=== PATIENT | male | born 1965 | race Caucasian/White ===

== ENCOUNTER 2019-02-12 10:50 | Emergency (ER) | payer OTHER ==
[2019-02-12] MEDS ORDERED: FENTANYL CITRATE PF 50 MCG/1 ML 2ML VIAL ONE (11:43)
[2019-02-12 12:27] LABS: BASOPHILS % (AUTO) 0.4 % (0.0-5.0); EOSINOPHILS % (AUTO) 2.7 % (0.0-8.0); LYMPHOCYTES % (AUTO) 22.6 % (21.0-51.0); MEAN CORPUSCULAR HEMOGLOBIN 29.4 pg (27.0-33.0); MEAN CORPUSCULAR HGB CONC 34.3 g/dL (32.0-36.0); MEAN CORPUSCULAR VOLUME 85.8 fL (79-99); MONOCYTES % (AUTO) 5.9 % (3.0-13.0); NEUTROPHILS % (AUTO) 68.4 % (40.0-77.0); PLATELET COUNT (AUTO) 218 K/uL (130-400); RED BLOOD CELL COUNT(AUTO) 3.26 MIL/uL (4.50-6.20); RED CELL DISTRIBUTION WIDTH 16.8 % (11.0-15.5)
[2019-02-12 12:37] LABS: INR 0.98 (0.85-1.15); PARTIAL THROMBOPLASTIN TIME 24.7 SEC (26.3-35.5); PROTHROMBIN TIME 10.3 SEC (9.6-11.6)
[2019-02-12 12:47] LABS: CREATININE 1.6 mg/dL (0.5-1.5)
[2019-02-12 12:51] LABS: ALBUMIN 2.2 g/dL (3.5-5.0); BILIRUBIN,DIRECT 0.3 mg/dL (0.0-0.3); BILIRUBIN,TOTAL 0.6 mg/dL (0.2-1.0); MAGNESIUM 2.5 mg/dL (1.80-2.40); TOTAL PROTEIN, SERUM 5.3 g/dL (6.0-8.3)
[2019-02-12 13:35] LABS: BILIRUBIN,URINE SMALL (NEGATIVE); COLOR,URINE YELLOW (YELLOW); GLUCOSE, URINE (UA) 500 mg/dL (NEGATIVE); KETONES,URINE 15 mg/dL (NEGATIVE); LEUKOCYTE ESTERASE ,URINE NEGATIVE (NEGATIVE); NITRATE,URINE NEGATIVE (NEGATIVE); OCCULT BLOOD,URINE MODERATE (NEGATIVE); PH,URINE 6.5 (5.0-8.0); PROTEIN,URINE >=300 mg/dL (NEGATIVE); UROBILINOGEN,URINE >=8.0 mg/dL (0.2-1.0)
[2019-02-12 13:51] LABS: APPEARANCE,URINE SLIGHTLY CLOUDY (CLEAR)
[2019-02-12 13:52] LABS: BACTERIA,URINE Few /HPF (None Seen); RBC,URINE 0-1 /HPF (0-1); SQUAMOUS EPITHELIAL CELL,UR None Seen /HPF (0-2)
[2019-02-12] MEDS ORDERED: SODIUM CHLORIDE 0.9% 1000ML 1,000 ML IV ONE (14:37)
== END 2019-02-12 18:56 | disposition home or self-care (01) ==
LOC: EDBD 10:50 → EDH 10:50
DX: S70.02XA Contusion of left hip, initial encounter (principal); E11.65 Type 2 diabetes mellitus with hyperglycemia; E86.0 Dehydration; E78.00 Pure hypercholesterolemia, unspecified; Z86.73 Personal history of transient ischemic attack (TIA), and cerebral infarction without residual deficits; Z87.891 Personal history of nicotine dependence; Z89.512 Acquired absence of left leg below knee; Z88.6 Allergy status to analgesic agent; W05.0XXA Fall from non-moving wheelchair, initial encounter; Y93.89 Activity, other specified; Y92.89 Other specified places as the place of occurrence of the external cause; Y99.8 Other external cause status
CPT/HCPCS: 36415; 73502; 80048; 80076; 81001; 82550; 83735; 84484; 85025; 85610; 85730; 96361; 96374; 99285; J3010; J7030

== ENCOUNTER 2019-02-13 20:41 | Inpatient (IN) | payer OTHER ==
[~2019-02-13] VITALS: Ht 190.5 cm; Wt 79.9 kg
[2019-02-13 21:20] LABS: BASOPHILS % (AUTO) 0.5 % (0.0-5.0); EOSINOPHILS % (AUTO) 1.3 % (0.0-8.0); HEMATOCRIT 25.9 % (42-54); MEAN CORPUSCULAR HEMOGLOBIN 29.1 pg (27.0-33.0); MEAN CORPUSCULAR HGB CONC 34.6 g/dL (32.0-36.0); MEAN CORPUSCULAR VOLUME 84.1 fL (79-99); MONOCYTES % (AUTO) 7.1 % (3.0-13.0); NEUTROPHILS % (AUTO) 75.1 % (40.0-77.0); PLATELET COUNT (AUTO) 236 K/uL (130-400); RED BLOOD CELL COUNT(AUTO) 3.08 MIL/uL (4.50-6.20); RED CELL DISTRIBUTION WIDTH 16.3 % (11.0-15.5); WHITE BLOOD COUNT (AUTO) 6.8 K/uL (4.8-10.8)
[2019-02-13 21:30] LABS: ALBUMIN 2.1 g/dL (3.5-5.0); BILIRUBIN,TOTAL 0.6 mg/dL (0.2-1.0); CREATININE 1.8 mg/dL (0.5-1.5); POTASSIUM 3.7 mmol/L (3.5-5.1); TOTAL PROTEIN, SERUM 5.2 g/dL (6.0-8.3)
[2019-02-13] MEDS ORDERED: SODIUM CHLORIDE 0.9% 1000ML 1,000 ML IV ONE ×2 (22:06→23:55)
[2019-02-13] MEDS ORDERED: HYDRALAZINE HCL 20 MG/ML VIAL ONE (22:19)
[2019-02-13] MEDS ORDERED: ONDANSETRON HCL 4 MG/2 ML VIAL ONE (22:24)
[2019-02-13 22:33] LABS: ACETAMINOPHEN 1 mcg/mL (10-29); ALCOHOL, BLOOD < 3 mg/dL (0-10); CREATINE KINASE, TOTAL 129 U/L (21-232)
[2019-02-13 22:38] LABS: SALICYLATE < 2.8 mg/dL (2.8-20.0)
[2019-02-13 22:46] LABS: APPEARANCE,URINE Clear (CLEAR); BILIRUBIN,URINE Negative (NEGATIVE); COLOR,URINE Yellow (YELLOW); GLUCOSE, URINE (UA) >=1000 mg/dL (NEGATIVE); KETONES,URINE Trace mg/dL (NEGATIVE); LEUKOCYTE ESTERASE ,URINE Negative (NEGATIVE); NITRATE,URINE Negative (NEGATIVE); OCCULT BLOOD,URINE Small (NEGATIVE); PH,URINE 6.5 (5.0-8.0); PROTEIN,URINE >=1000 mg/dL (NEGATIVE)
[2019-02-13 22:55] LABS: AMPHET/METH SCREEN,URINE NEGATIVE (NEGATIVE); BARBITURATE SCREEN, URINE NEGATIVE (NEGATIVE); BENZODIAZEPINES SCREEN,URINE NEGATIVE (NEGATIVE); CANNABINOID SCREEN,URINE NEGATIVE (NEGATIVE); COCAINE SCREEN,URINE NEGATIVE (NEGATIVE); OPIATE SCREEN,URINE NEGATIVE (NEGATIVE); PHENCYCLIDINE SCREEN,URINE NEGATIVE (NEGATIVE)
[2019-02-13] MEDS: SODIUM CHLORIDE 0.9% 1000ML 1,000 ML IV SCH (23:03)
[2019-02-13 23:05] LABS: AMORPHOUS SEDIMENT,UR Few /LPF (None Seen); BACTERIA,URINE None Seen /HPF (None Seen); MUCUS,URINE Many LPF (None Seen); RBC,URINE 0-1 /HPF (0-1); SQUAMOUS EPITHELIAL CELL,UR Moderate /HPF (0-2); WBC,URINE None Seen /HPF (0-1)
[2019-02-13] MEDS ORDERED: ONDANSETRON HCL 4 MG/2 ML VIAL IV PRN (23:15)
[2019-02-13] MEDS ORDERED: HYDRALAZINE HCL 20 MG/ML VIAL IV PRN (23:15)
[2019-02-13] MEDS ORDERED: LACTULOSE 20 GM/30 ML UDCUP PO PRN (23:15)
[2019-02-13] MEDS ORDERED: ACETAMINOPHEN 325 MG TAB PO PRN ×2 (23:15)
[2019-02-13 23:24] LABS: CHOLESTEROL 152 mg/dL (<200); HDL CHOLESTEROL 104 mg/dL (29-71); LDL DIRECT 79 mg/dL (0-99); TRIGLYCERIDES 162 mg/dL (30-200)
[2019-02-13 23:29] LABS: HEMOGLOBIN A1C 8.8 % (4.0-6.0)
[2019-02-14] VITALS (7 sets, daily range): BP systolic 130–164; BP diastolic 65–84
[2019-02-14] MEDS ORDERED: INSULIN SQ (00:59)
[2019-02-14 04:32] LABS: CREATININE 1.5 mg/dL (0.5-1.5); POTASSIUM 4.3 mmol/L (3.5-5.1)
[2019-02-14 05:51] LABS: BASOPHILS % (AUTO) 0.5 % (0.0-5.0); EOSINOPHILS % (AUTO) 0.8 % (0.0-8.0); HEMATOCRIT 25.5 % (42-54); LYMPHOCYTES % (AUTO) 14.8 % (21.0-51.0); MEAN CORPUSCULAR HEMOGLOBIN 29.3 pg (27.0-33.0); MEAN CORPUSCULAR HGB CONC 34.6 g/dL (32.0-36.0); MEAN CORPUSCULAR VOLUME 84.6 fL (79-99); MONOCYTES % (AUTO) 6.8 % (3.0-13.0); NEUTROPHILS % (AUTO) 77.1 % (40.0-77.0); PLATELET COUNT (AUTO) 234 K/uL (130-400); RED BLOOD CELL COUNT(AUTO) 3.01 MIL/uL (4.50-6.20); RED CELL DISTRIBUTION WIDTH 16.7 % (11.0-15.5); WHITE BLOOD COUNT (AUTO) 7.3 K/uL (4.8-10.8)
[2019-02-14] MEDS: SODIUM CHLORIDE 0.9% 1000ML 1,000 ML IV SCH ×2 (06:52→20:45)
[2019-02-14] MEDS: INSULIN HUMULIN R 100 UNIT/ML 3ML SQ SCH ×4 (06:55→20:45)
[2019-02-14] MEDS ORDERED: MECLIZINE HCL 25 MG TABLET PO PRN (07:15)
[2019-02-14 08:20] LABS: % IRON SATURATION 23.7 % (30-44)
[2019-02-14] MEDS: METOPROLOL TARTRATE 25 MG TAB PO SCH ×3 (08:54→20:44)
[2019-02-14] MEDS: FAMOTIDINE 20MG TAB 20 MG TAB PO SCH ×2 (08:54→20:44)
[2019-02-14] MEDS: ENOXAPARIN SODIUM 40 MG/0.4 ML SYRINGE SQ SCH (08:55)
[2019-02-14] MEDS ORDERED: LORAZEPAM 2 MG/ML 1 ML VIAL ONE (11:34)
--- NOTE | 2019-02-14 16:56 | NUR ---
cm note met with patient and states resides at home with daughter Deangelo. per pt states he is primarily w/cbound for a while, thinks for approximately 2 months, has a power chair and a w/c. no other dme. states he is able to bathe himself, and daughter Deangelo trasnports him as needed. states he is alone at home when daughter is in school. states that [facility] is currently working with him to try and get him a provider. states dc plan is back to home setting at time of dc. Addendum: 02/14/19 at 1701 by VIRGINIA PRETTY CM Amended: Links added. Addendum: 02/14/19 at 1733 by VIRGINIA PRETTY CM also provided pt with list of low income clinics in the area for md followup. and also provided info on [facility]for possible provider services or transport.
[2019-02-14] MEDS ORDERED: ASPIRIN 325 MG TABLET ONE (17:48)
[2019-02-14] MEDS: ATORVASTATIN CALCIUM 20 MG TABLET PO SCH (20:44)
[2019-02-15 03:50] VITALS: BP 127/66
[2019-02-15 05:13] LABS: BASOPHILS % (AUTO) 0.7 % (0.0-5.0); EOSINOPHILS % (AUTO) 1.6 % (0.0-8.0); HEMATOCRIT 23.3 % (42-54); LYMPHOCYTES % (AUTO) 26.5 % (21.0-51.0); MEAN CORPUSCULAR HEMOGLOBIN 28.9 pg (27.0-33.0); MEAN CORPUSCULAR HGB CONC 34.2 g/dL (32.0-36.0); MEAN CORPUSCULAR VOLUME 84.4 fL (79-99); NEUTROPHILS % (AUTO) 63.2 % (40.0-77.0); NUCLEATED RED BLOOD CELLS 0.1 % (0.0-0.19); PLATELET COUNT (AUTO) 218 K/uL (130-400); RED BLOOD CELL COUNT(AUTO) 2.77 MIL/uL (4.50-6.20); RED CELL DISTRIBUTION WIDTH 16.6 % (11.0-15.5); WHITE BLOOD COUNT (AUTO) 5.6 K/uL (4.8-10.8)
[2019-02-15 05:31] LABS: CREATININE 1.4 mg/dL (0.5-1.5); POTASSIUM 3.6 mmol/L (3.5-5.1)
[2019-02-15] MEDS: INSULIN HUMULIN R 100 UNIT/ML 3ML SQ SCH ×4 (06:21→22:05)
[2019-02-15] MEDS: SODIUM CHLORIDE 0.9% 1000ML 1,000 ML IV SCH ×3 (06:21→22:51)
[2019-02-15 08:09] VITALS: BP 150/80
[2019-02-15] MEDS: FAMOTIDINE 20MG TAB 20 MG TAB PO SCH ×2 (08:37→22:03)
[2019-02-15] MEDS: ASPIRIN 325MG EC TAB 325 MG TABLET.DR PO SCH (08:38)
[2019-02-15] MEDS: METOPROLOL TARTRATE 25 MG TAB PO SCH ×3 (08:38→22:02)
[2019-02-15] MEDS: ENOXAPARIN SODIUM 40 MG/0.4 ML SYRINGE SQ SCH (08:38)
--- NOTE | 2019-02-15 10:16 | NUR ---
APS Sw recd call from Nora Alvarenga [phone]. APS has open case on pt. Pt has not been home long enough for APS to assist with provider services. Per ex , pt had benefits in past, but got into fight with catalytic case operator and did not follow up with renewal of benefits. APS wanting to send someone over today to assist pt with reapplying for benefits to get pt bed bug exterminator provider services. Per CM pt not discharging today and is aware of APS request. Sw to update APS as needed
[2019-02-15 11:48] VITALS: BP 154/92
--- NOTE | 2019-02-15 12:48 | NUR ---
DYSPHAGIA EVAL COMPLETED. -S/S OF ASPIRATION. RECOMMEND REGULAR TEXTURE, THIN LIQUIDS; PILLS WHOLE WITH LIQUIDS. Addendum: 02/15/19 at 1249 by VIVEK KNIGHT, [facility] Amended: Links added.
--- NOTE | 2019-02-15 13:50 | NUR ---
GERMAN Farley from [facility] was sent by [employer] to meet with pt and do competency testing for them. He is here to meet with pt. Ramírez needing copy of H&P and was given copy as requested.
--- NOTE | 2019-02-15 13:56 | NUR ---
RD Notification - Trigger Pt admitted for Fall, ARF. S/p MRI, pending neurology eval as EMR. Pt currently tolerating 75gm CC diet order as per Pt. No report of GI distress and good PO intake (100%). 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 Pt with R. Ankle lateral wound, as per EMR; Rec to add 30mL ProMod TID. Pt LBM 02/13/19. Pt monitored labs: GFR 57, Glu 164, Ca 7.8, Alb 2.1. RD to continue to monitor. Please notify as additional nutrition concerns arise. Thank you. Addendum: 02/15/19 at [address] Amended: Links added.
--- NOTE | 2019-02-15 14:53 | NUR ---
DISCUSSED DC PLAN PT LIVES WITH MINOR DAUGHTER- 15 YRS. SHE PERFOMRS MOST OF THE HOUSEHOLD DUTIES THAT PT CANNOT. SHE RIDES THE BUS TO SCHOOL AND PT RECS CHILD SUPPORT. EX SPOSUE LIVES IN TOWN AND DAUGHTER IS STAYING W MOM WHILE PT IS IN THE HOSPICAT. PT W DX OF STROKE, PT GENNARO RODRIGUEZ, PRIMARY RN ENTERED [facility] ASSISTING PATIENT. APS ASSISTING WITH PROVIDER SERVICES UNTIL MEDICAID ACTIVATED. Addendum: 02/15/19 at 1456 by GAURAV SOLANO RN Amended: Links added.
[2019-02-15 17:00] VITALS: BP 111/74
[2019-02-15 19:43] VITALS: BP 174/86
[2019-02-15] MEDS: ATORVASTATIN CALCIUM 20 MG TABLET PO SCH (22:01)
[2019-02-15 23:46] VITALS: BP 164/67
[2019-02-16 03:57] VITALS: BP 160/86
[2019-02-16 04:41] LABS: BASOPHILS % (AUTO) 0.7 % (0.0-5.0); EOSINOPHILS % (AUTO) 1.3 % (0.0-8.0); HEMATOCRIT 23.5 % (42-54); LYMPHOCYTES % (AUTO) 23.3 % (21.0-51.0); MEAN CORPUSCULAR HEMOGLOBIN 29.4 pg (27.0-33.0); MEAN CORPUSCULAR HGB CONC 34.6 g/dL (32.0-36.0); MEAN CORPUSCULAR VOLUME 84.9 fL (79-99); MONOCYTES % (AUTO) 8.3 % (3.0-13.0); NEUTROPHILS % (AUTO) 66.4 % (40.0-77.0); PLATELET COUNT (AUTO) 211 K/uL (130-400); RED BLOOD CELL COUNT(AUTO) 2.77 MIL/uL (4.50-6.20); WHITE BLOOD COUNT (AUTO) 5.6 K/uL (4.8-10.8)
[2019-02-16 04:49] LABS: CREATININE 1.4 mg/dL (0.5-1.5); POTASSIUM 3.4 mmol/L (3.5-5.1)
[2019-02-16] MEDS: INSULIN HUMULIN R 100 UNIT/ML 3ML SQ SCH ×4 (05:27→20:48)
[2019-02-16 07:56] VITALS: BP 154/90
[2019-02-16] MEDS: ENOXAPARIN SODIUM 40 MG/0.4 ML SYRINGE SQ SCH (10:30)
[2019-02-16] MEDS: ASPIRIN 325MG EC TAB 325 MG TABLET.DR PO SCH (10:30)
[2019-02-16] MEDS: FAMOTIDINE 20MG TAB 20 MG TAB PO SCH ×2 (10:30→20:47)
[2019-02-16] MEDS: METOPROLOL TARTRATE 25 MG TAB PO SCH ×3 (10:30→20:47)
[2019-02-16 11:43] VITALS: BP 152/85
--- NOTE | 2019-02-16 12:20 | NUR ---
APS Sw left message for Nora henaowlatasha regarding need for ID. Waiting for response.
[2019-02-16 16:53] VITALS: BP 152/84
[2019-02-16 19:31] VITALS: BP 178/92
[2019-02-16] MEDS: ATORVASTATIN CALCIUM 20 MG TABLET PO SCH (20:47)
[2019-02-16 23:32] VITALS: BP 180/92
[2019-02-17 03:51] VITALS: BP 152/81
[2019-02-17] MEDS: INSULIN HUMULIN R 100 UNIT/ML 3ML SQ SCH ×4 (05:35→22:22)
[2019-02-17 06:16] LABS: BASOPHILS % (AUTO) 0.8 % (0.0-5.0); EOSINOPHILS % (AUTO) 1.4 % (0.0-8.0); HEMATOCRIT 25.4 % (42-54); LYMPHOCYTES % (AUTO) 22.7 % (21.0-51.0); MEAN CORPUSCULAR HGB CONC 34.7 g/dL (32.0-36.0); MEAN CORPUSCULAR VOLUME 83.5 fL (79-99); MONOCYTES % (AUTO) 9.7 % (3.0-13.0); NEUTROPHILS % (AUTO) 65.4 % (40.0-77.0); PLATELET COUNT (AUTO) 239 K/uL (130-400); RED BLOOD CELL COUNT(AUTO) 3.04 MIL/uL (4.50-6.20); WHITE BLOOD COUNT (AUTO) 4.8 K/uL (4.8-10.8)
[2019-02-17 06:26] LABS: CREATININE 1.3 mg/dL (0.5-1.5); POTASSIUM 3.2 mmol/L (3.5-5.1)
[2019-02-17 08:00] VITALS: BP 169/89
[2019-02-17] MEDS: METOPROLOL TARTRATE 25 MG TAB PO SCH ×3 (09:40→22:15)
[2019-02-17] MEDS: FAMOTIDINE 20MG TAB 20 MG TAB PO SCH ×2 (09:40→22:15)
[2019-02-17] MEDS: ASPIRIN 325MG EC TAB 325 MG TABLET.DR PO SCH (09:40)
[2019-02-17] MEDS: ENOXAPARIN SODIUM 40 MG/0.4 ML SYRINGE SQ SCH (09:41)
[2019-02-17] MEDS ORDERED: AMLODIPINE BESYLATE 2.5 MG TAB PO SCH (09:45)
[2019-02-17] MEDS: POTASSIUM CHLORIDE 10% ELIXIR 20 MEQ/15 ML UDCUP PO SCH ×3 (10:15→21:00)
[2019-02-17 12:00] VITALS: BP 142/76
[2019-02-17] MEDS ORDERED: ASPI-891 PO (13:04)
[2019-02-17] MEDS ORDERED: ATOR20TA65 PO (13:04)
[2019-02-17] MEDS ORDERED: METO25 PO (13:04)
[2019-02-17 16:00] VITALS: BP 144/71
[2019-02-17 19:00] VITALS: BP_SYST 156; BP_SYST 165; BP_DIAS 74; BP_DIAS 75
--- NOTE | 2019-02-17 21:25 | NUR ---
DISCHARGE PLAN PT VOICED DOES NOT DOES NOT RECALL PHONE NUMBERS NOR WHOM HE SPOKE TO EARLIER TODAY ON THE PHONE ABOUT PICKING HIM UP FROM THE HOSPITAL WHEN DISCHARGED. GREY FLORES PAGED, IN REGARDS TO NO DISCHARGE OR CLEARED FOR DISCHARGE FROM .
--- NOTE | 2019-02-17 21:43 | NUR ---
GREY FLORES RETURNED CALL. GAVE ORDER OKAY TO HOLD DISCHARGE UNTIL CLEARED TO GO HOME BY DR. MAZARIEGOS.
[2019-02-17] MEDS: ATORVASTATIN CALCIUM 20 MG TABLET PO SCH (22:15)
[2019-02-17] MEDS: INSULIN GLARGINE 100 UNITS/ML 10 ML VIAL SQ SCH (22:23)
[2019-02-18] VITALS (7 sets, daily range): BP systolic 116–193; BP diastolic 69–93
[2019-02-18 04:49] LABS: HEMATOCRIT 23.3 % (42-54); MEAN CORPUSCULAR HEMOGLOBIN 29.3 pg (27.0-33.0); MEAN CORPUSCULAR HGB CONC 34.6 g/dL (32.0-36.0); MEAN CORPUSCULAR VOLUME 84.8 fL (79-99); NUCLEATED RED BLOOD CELLS 0.1 % (0.0-0.19); PLATELET COUNT (AUTO) 214 K/uL (130-400); RED BLOOD CELL COUNT(AUTO) 2.75 MIL/uL (4.50-6.20); RED CELL DISTRIBUTION WIDTH 16.7 % (11.0-15.5); WHITE BLOOD COUNT (AUTO) 4.5 K/uL (4.8-10.8)
[2019-02-18 04:51] LABS: CREATININE 1.5 mg/dL (0.5-1.5); MAGNESIUM 1.1 mg/dL (1.80-2.40); POTASSIUM 3.3 mmol/L (3.5-5.1)
[2019-02-18] MEDS: POTASSIUM CHLORIDE 10% ELIXIR 20 MEQ/15 ML UDCUP PO SCH ×5 (05:44→20:52)
[2019-02-18] MEDS: INSULIN HUMULIN R 100 UNIT/ML 3ML SQ SCH ×4 (05:47→20:50)
[2019-02-18] MEDS ORDERED: MAGNESIUM 2GM PREMIX 50ML 50 ML IV PRN (09:00)
[2019-02-18] MEDS ORDERED: AMLODIPINE BESYLATE 2.5 MG TAB PO SCH (09:00)
[2019-02-18] MEDS: ASPIRIN 325MG EC TAB 325 MG TABLET.DR PO SCH (09:21)
[2019-02-18] MEDS: METOPROLOL TARTRATE 25 MG TAB PO SCH ×3 (09:21→20:51)
[2019-02-18] MEDS: MAGNESIUM OXIDE 400 MG TABLET PO SCH (09:22)
[2019-02-18] MEDS: FAMOTIDINE 20MG TAB 20 MG TAB PO SCH ×2 (09:22→20:51)
[2019-02-18] MEDS: ENOXAPARIN SODIUM 40 MG/0.4 ML SYRINGE SQ SCH (09:23)
--- NOTE | 2019-02-18 09:51 | NUR ---
GERMAN Delatorre recd call from jack Diaz. APS has no copies on ID for pt. APS has sent someone to see pt in hospital to assist with restarting services and for competency exam. Pt has capacity per interview and APS is assisting pt with trying to get benefits restarted. Juan Ramon referred Nora to Dimas at [employer] for more financial info on pt. Dimas is aware APS wishing to speak with him
[2019-02-18] MEDS ORDERED: LORAZEPAM 2 MG/ML 1 ML VIAL IVP SCH (10:00)
[2019-02-18] MEDS ORDERED: POTASSIUM CHLORIDE 10% ELIXIR 20 MEQ/15 ML UDCUP PO SCH (13:00)
--- NOTE | 2019-02-18 14:53 | NUR ---
GERMAN Sw contacted Nora Alvarenga at [facility] for contact info for friends or relatives. She gave these for 2 ex wives - Nell Seymour [phone] and Rosangela Wilkersondo [phone]. Per Nora, flory no longers lives with him, so he lives alone. APS has not had a chance to set up provider because pt is not home long enough for them to arrange. APS states that issues with benefits is related to flory is not living with him and was getting child support from ex . Pt has to straighten this out for benefits to restart. Aps reports that [facility] always sends pt home via ambulance since pt has capacity.
--- NOTE | 2019-02-18 17:30 | NUR ---
DISCHARGE PLANNING CALLED BY PRIMARY RN ABOUT THE PT DC PLAN, SHE WAS ADVISED BY BRODIE TO SEND PT HOME BY EMS BECAUSE THAT IS WHAT DOES. CALLED GIANFRANCO CALLOWAY,WHO STATES THAT APS GAVE HER THE SAME NUMBERS THAT WE HAVE, THEY ARE EX WIVES THAT DO NOT ANWER, AND THAT WE SHOULD SEND HIM BY EMS TONIGHT AND APS WILL TAKE OVER RN STATES PT DID NOT KNOW IF HIS APT WAS OPEN- TRIED TO CALL LEASING OFFICE AT [facility] [phone] AND TALKED TO [place]O . PT STATES HE COULD OPEN HIS APARTMENT CM CALLED LEASING OFFICE- ANSWERING MACHINE. SPOKE TO PT ASKED HIM HOW HE GOT INTO HIS APT WHEN SENT HOME FROM [facility]- STATES HE HAD A LUDWIG, THIS TIME HE DOES NOT ASKED WERE HIS PHONE WAS, STATES IT MIGHT BE IN HIS APARTMENT OR MIGHT BE WITH HIS DAUGHTER BUT HE DOES NOT KNOW. DISCUSSED DC PLAN W CM DIRECTOR, NO LUDWIG, NO PHONE- NOT A SAFE DC AT 5 PM AT NIGHT WITH NO APS WORKER TILL AM. PLANTO CALL LEASING OFFICE IN AM . CM DIRECTOR AGREED. BRODIE NOTES REVIEWED. TRIED PHONE NUMBERS OBTAINED FROM APS EARLIER TODAY, LEFT MESSAGES FOR CALL BACK WITH BOTH. ARLYN ARDON ANSWERED STATES WORKS NIGHT, UNAVAILABLE TO ANSWER DURING THE DAY. PT MUST GO BY EMS BECAUSE 'HE FALLS OUT OF CARS', EMS IS SAFER. "AGUILAR MINNA HAS LUDWIG TO APT, IF SHE DOES NOT ANSWER, PLS CALL ME, I WILL TEXT/FIND AGUILAR FOR YALL. AND PLEASE PLEASE CALL APS WELDING OPERATOR IN AM TO ADVISE HER THAT HE IS LEAVING" PLAN DISCUSSED W RN AND CM DIRECTOR 1.CALL MINNA IN AM TO OPEN APT 2.IF NO ANSWER CALL REVA TO TEXT/FIND MINNA. 3 IF UNABLE TO GET A HOLD OF EITHER ONE, WILL CALL LEASING OFFICE 4. CALL BEBETO AT APS [phone] IN AM TO ADVISED THAT PT IS RETURNING HOME AND WILL ALSO CALL WHEN EMS IS LEAVING.
[2019-02-18] MEDS: INSULIN GLARGINE 100 UNITS/ML 10 ML VIAL SQ SCH (20:51)
[2019-02-18] MEDS: ATORVASTATIN CALCIUM 20 MG TABLET PO SCH (20:51)
[2019-02-19 04:00] VITALS: BP 138/62
[2019-02-19 04:02] LABS: HEMATOCRIT 24.4 % (42-54); MEAN CORPUSCULAR HEMOGLOBIN 28.8 pg (27.0-33.0); MEAN CORPUSCULAR VOLUME 84.7 fL (79-99); NUCLEATED RED BLOOD CELLS 0.1 % (0.0-0.19); PLATELET COUNT (AUTO) 219 K/uL (130-400); RED BLOOD CELL COUNT(AUTO) 2.88 MIL/uL (4.50-6.20); RED CELL DISTRIBUTION WIDTH 17.3 % (11.0-15.5); WHITE BLOOD COUNT (AUTO) 5.1 K/uL (4.8-10.8)
[2019-02-19 04:11] LABS: CREATININE 1.3 mg/dL (0.5-1.5); POTASSIUM 3.6 mmol/L (3.5-5.1)
[2019-02-19] MEDS: INSULIN HUMULIN R 100 UNIT/ML 3ML SQ SCH (05:33)
--- NOTE | 2019-02-19 07:27 | NUR ---
CALL TO AGUILAR BUITRAGO T/C PLACED TO AGUILAR BUITRAGO, AT [phone]. NO ANSWER, LEFT MESSAGE TO CALL [phone].
--- NOTE | 2019-02-19 07:30 | NUR ---
CALL TO ARLYN ARDON T/C PLACED TO ARLYN ARDON, STATES SPOKE WITH INSPECTOR AND HAND PACKAGER YESTERDAY. SHE SAID AGUILAR HAS THE LUDWIG TO HIS APT. AND NEED TO CALL HER.
--- NOTE | 2019-02-19 07:48 | NUR ---
CALL TO AGUILAR BUITRAGO T/C PLACED TO AGUILAR BUITRAGO, NO ANSWER LEFT MESSAGE.
[2019-02-19 07:51] VITALS: BP 157/74
--- NOTE | 2019-02-19 08:20 | NUR ---
Arabella BUITRAGO SPOKE TO Arabella BUITRAGO [phone] REGARDING PATIENT PENDING DISCHARGE AND NEEDS SOMEONE TO OPEN APARTMENT. Arabella BUITRAGO TOLD ME SHE WAS A WORK TODAY AND WOULD BE UNABLE TO OPEN PATIENTS APARTMENT, BUT THAT CAITLIN JEFFERSON COTTON STOMPER SHOULD HAVE A MASTER LUDWIG TO OPEN PATIENTS APARTMENT.
--- NOTE | 2019-02-19 08:43 | NUR ---
CAITLIN PAULINO APT SOLID FIBER PASTER OPERATOR SPOKE TO NEVIN NIEVES, SOLID FIBER PASTER OPERATOR OF [facility] [phone]. Emma NIEVES DID CLARIFY PATIENT DOES RESIDE IN APARTMENT COMPLEX AND SHE WOULD BE AVAILABLE TO OPEN PATIENTS APARTMENT WHEN PATIENT IS DISCHARGES HOME. I TOLD Emma NIEVES I WOULD COORDINATE WITH EMS AND CALL HER WHEN EMS IS ON THE WAY TO TRANSIT WORKER PATIENT AND Emma NIEVES AGREED SHE WOULD OPEN DOOR WHEN CALLED THAT EMS WOULD TAKE PATIENT HOME.
[2019-02-19] MEDS ORDERED: CLOPIDOGREL BISULFATE 75 MG TAB PO SCH (09:00)
[2019-02-19] MEDS: POTASSIUM CHLORIDE 10% ELIXIR 20 MEQ/15 ML UDCUP PO SCH ×3 (09:00→09:45)
[2019-02-19] MEDS: MAGNESIUM OXIDE 400 MG TABLET PO SCH (09:00)
[2019-02-19] MEDS: ASPIRIN 325MG EC TAB 325 MG TABLET.DR PO SCH (10:23)
[2019-02-19] MEDS: FAMOTIDINE 20MG TAB 20 MG TAB PO SCH (10:23)
[2019-02-19] MEDS: METOPROLOL TARTRATE 25 MG TAB PO SCH (10:24)
--- NOTE | 2019-02-19 10:45 | NUR ---
DISCHARGE DISCHARGE TEACHING PROVIDED TO PATIENT REGARDING DISCHARGE RX (LOPRESSOR, PLAVIX, ATORVASTATIN, ASPIRIN) AND MEDICATIONS INSTRUCTIONS PROVIDED REGARDING DATE AND TIME OF LAST DOSE AND DATE AND TIME OF NEXT DOSE. FAXED RX TO PATIENTS PHARMACY, [facility] [place], [place] [phone]. ORIGINAL RX GIVEN TO PATIENT IN DISCHARGE FOLDER.INFORMED PATIENT F/U APPOINTMENT WITH PRIMARY MD DR. SOLIS PENDING TO BE SCHEDULED ON Friday02/22/19. WE ATTEMPTED TO SCHEDULE F/U APPT, BUT RECEIVED MESSAGE THAT DR. SOLIS'S OFFICE OPEN ONLY MONDAYS THRU THURSDAYS. ALSO INFORMED PATIENT THAT DR. MAZARIEGOS RECOMMENDS FOR PATIENT TO F/U WITH NEUROLOGIST DR. AVILES FROM [facility], BUT PATIENT NEEDS REFERRAL FROM DR. SOLIS IN ORDER TO SEE DR. AVILES. WHEN WE CALLED TO SCHEDULE APPOINTMENT WITH DR. AVILES, OFFICE STAFF INFORMED US A REFERRAL FROM PCP NEEDED. PROVIDED DR. SOLIS'S AND DR. AVILES'S OFFICE TELEPHONE NUMBERS TO PATIENT IN DISCHARGE PAPERWORK. PATIENT VERBALIZED UNDERSTANDING OF DISCHARGE TEACHING. INSTRUCTED PATIENT TO RETURN TO ER IF S/S OF WORSENING CONDITION OCCURS (DIZZY, SLURRING WORDS, NUMBNESS/TINGLING TO ARMS OR LEGS, FACIAL DROOPING, VISION CHANGES). PATIENT REPORTS NO PAIN AND IS IN NO APPARENT DISTRESS. PATIENT STATES HE "FEELS ECSTATIC" TO GO HOME.
--- NOTE | 2019-02-19 11:05 | NUR ---
CAITLIN PAULINO APT ORE DRYER CALLED CAITLIN PAULINO SHOP TAILOR APPRENTICE NEVIN NIEVES [phone] TO NOTIFY HER PATIENT WILL BE PICKED UP BY EMS AND WILL BE TRANSFERRED HOME SHORTLY. Emma NIEVES REPLIED THAT EITHER HER OR ANOTHER ORE DRYER SHOULD BE PRESENT.
--- NOTE | 2019-02-19 11:15 | NUR ---
[facility] ARRIVED TO BLOW MOLDER PATIENT. PROVIDED CAITLIN PAULINO PLASTERER SPRAY GUN PHONE NUMBER TO EMS STAFF AND INFORMED THEM THAT SALESPERSON FLOWERS SHOULD BE AVAILABLE TO OPEN PATIENTS APARTMENT DOOR AND THAT I HAVE ALREADY SPOKED TO CAITLIN PAULINO SALESPERSON FLOWERS Emma NIEVES TO INFORM HER EMS SHOULD BE TRANSFERRING PATIENT HOME SOON.
[2019-02-19 11:19] VITALS: BP 181/72
--- NOTE | 2019-02-19 11:20 | NUR ---
BEBETO AT [facility] CALLED BEBETO AT [facility] [phone] TO INFORM HER THAT EMS HAS ARRIVED TO LINE CONSTRUCTION SUPERINTENDENT PATIENT TO TRANSFER PATIENT HOME. NO ANSWER SO I LEFT VOICEMAIL AT [phone].
--- NOTE | 2019-02-19 14:35 | NUR ---
GERMAN f/u Juan Ramon recd call from Nora at [facility]. She has seen pt already and they are trying to get provider there today. They will assist with 5hrs a day and hope that he can get insurance attorney issues resolved quickly. Nora requesting medical records for environmental services supervisor be sent to [phone]
[2019-02-23] MEDS ORDERED: ASPIRIN 81MG TAB.CHEW PO SCH (09:00)
== END 2019-02-19 11:23 | disposition home or self-care (01) | DRG 64 ==
LOC: EDH 20:41 → EDHIP 20:42 → UNDOADMIN 23:03 → EDHIP 23:03 → 4AH 02-14 00:28
PROVIDERS: ADMIT Family Medicine; ATTEND Family Medicine
DX: I63.9 Cerebral infarction, unspecified (principal); N17.0 Acute kidney failure with tubular necrosis; E44.0 Moderate protein-calorie malnutrition; L97.919 Non-pressure chronic ulcer of unspecified part of right lower leg with unspecified severity; E86.0 Dehydration; E11.51 Type 2 diabetes mellitus with diabetic peripheral angiopathy without gangrene; E11.622 Type 2 diabetes mellitus with other skin ulcer; E11.65 Type 2 diabetes mellitus with hyperglycemia; E66.9 Obesity, unspecified; E78.5 Hyperlipidemia, unspecified; L89.890 Pressure ulcer of other site, unstageable; E83.42 Hypomagnesemia; E87.6 Hypokalemia; G93.89 Other specified disorders of brain; I10 Essential (primary) hypertension; Z89.512 Acquired absence of left leg below knee; Z68.22 Body mass index [BMI] 22.0-22.9, adult; Z91.14 Patient's other noncompliance with medication regimen; Z88.5 Allergy status to narcotic agent
CPT/HCPCS: 36415; 70450; 70544; 70551; 71250; 74176; 80048; 80053; 80061; 80305; 81001; 82550; 82948; 83036; 83540; 83550; 83605; 83690; 83735; 84443; 84466; 84484; 85025; 85027; 87804; 92610; 93005; 93880; 97039; C8929; G0378; G0480; G0481; J0360; J1650; J1815; J2060; J2405; J7030

== ENCOUNTER 2019-02-22 12:31 | Inpatient (IN) | payer MEDICAID, OTHER ==
[~2019-02-22 12:31] MED LIST: AMIODARONE HCL 50 MG/ML 3 ML VIAL IV ONE; ASPI-891 PO; ATOR20TA65 PO; ATROPINE SULFATE 0.1 MG/ML 10 ML SYG IVP ONE; CALCIUM CHLORIDE 100 MG/ML 10 ML SYG IVP ONE; EPINEPHRINE 0.1 MG/ML 10 ML SYG IVP ONE; INSULIN SQ; LIDOCAINE PF 2% 5ML ABBOJECT IVP ONE; MAGNESIUM SULFATE 1 GM/2 ML VIAL IM ONE; METO25 PO; SODIUM BICARB 8.4% 50ML SYRINGE IVP ONE
[2019-02-22 13:09] LABS: BASOPHILS % (AUTO) 0.3 % (0.0-5.0); HEMATOCRIT 29.7 % (42-54); LYMPHOCYTES % (AUTO) 9.9 % (21.0-51.0); MEAN CORPUSCULAR HEMOGLOBIN 28.9 pg (27.0-33.0); MEAN CORPUSCULAR HGB CONC 33.2 g/dL (32.0-36.0); MONOCYTES % (AUTO) 6.5 % (3.0-13.0); NEUTROPHILS % (AUTO) 83.3 % (40.0-77.0); PLATELET COUNT (AUTO) 204 K/uL (130-400); RED BLOOD CELL COUNT(AUTO) 3.41 MIL/uL (4.50-6.20); RED CELL DISTRIBUTION WIDTH 17.9 % (11.0-15.5); WHITE BLOOD COUNT (AUTO) 13.4 K/uL (4.8-10.8)
[2019-02-22] MEDS ORDERED: INSULIN HUMULIN R 100 UNIT/ML 3ML ONE ×3 (13:13→21:41)
[2019-02-22] MEDS ORDERED: SODIUM CHLORIDE 0.9% 1000ML 1,000 ML IV ONE (13:14)
[2019-02-22 13:24] LABS: ALBUMIN 2.2 g/dL (3.5-5.0); BILIRUBIN,TOTAL 0.3 mg/dL (0.2-1.0); CREATININE 4.7 mg/dL (0.5-1.5); POTASSIUM 5.2 mmol/L (3.5-5.1); TOTAL PROTEIN, SERUM 6.1 g/dL (6.0-8.3)
[2019-02-22 13:33] LABS: ABG BASE EXCESS -5.4 mmol/L (-2.0-3.0); ABG HCO3 18.7 mmol/L (21.0-28.0); ABG OXYGEN SATURATION 96.5 % (95.0-99.0); ABG PCO2 31 mmHg (35-48)
[2019-02-22] MEDS ORDERED: SODIUM CHLORIDE 0.9% 100 ML IV ONE (14:16)
[2019-02-22 14:18] LABS: APPEARANCE,URINE SL CLOUDY (CLEAR); BILIRUBIN,URINE NEGATIVE (NEGATIVE); COLOR,URINE YELLOW (YELLOW); GLUCOSE, URINE (UA) 500 mg/dL (NEGATIVE); KETONES,URINE NEGATIVE (NEGATIVE); LEUKOCYTE ESTERASE ,URINE NEGATIVE (NEGATIVE); NITRATE,URINE NEGATIVE (NEGATIVE); OCCULT BLOOD,URINE LARGE (NEGATIVE); PROTEIN,URINE >=300 mg/dL (NEGATIVE); UROBILINOGEN,URINE 0.2 mg/dL (0.2-1.0)
[2019-02-22 14:26] LABS: BACTERIA,URINE Few /HPF (None Seen)
[2019-02-22 14:27] LABS: MUCUS,URINE Few LPF (None Seen)
[2019-02-22] MEDS ORDERED: SODIUM CHLORIDE 0.9% 1000ML 1,000 ML IV SCH (17:21)
[2019-02-22] MEDS ORDERED: ONDANSETRON HCL 4 MG/2 ML VIAL IV PRN (17:30)
[2019-02-22] MEDS ORDERED: ACETAMINOPHEN 325 MG TAB PO PRN ×2 (17:30)
[2019-02-22] MEDS ORDERED: HYDRALAZINE HCL 20 MG/ML VIAL IV PRN (17:30)
[2019-02-22 18:55] LABS: HEMOGLOBIN A1C 8.3 % (4.0-6.0)
[2019-02-22 20:06] LABS: CREATININE,URINE RANDOM 58 mg/dL (30-135)
[2019-02-22 20:17] LABS: SODIUM,URINE RANDOM 97 mmol/l (40-220)
[2019-02-22] MEDS ORDERED: FAMOTIDINE/PF 20 MG/2 ML VIAL IV SCH (21:00)
[2019-02-22] MEDS ORDERED: DEXTROSE 50%-WATER 50 ML DISP.SYRIN IV PRN (22:15)
[2019-02-22] MEDS ORDERED: GLUCAGON 1MG KIT 1 MG ML IM PRN (22:15)
[2019-02-22 22:55] LABS: ABG BASE EXCESS -2.9 mmol/L (-2.0-3.0); ABG HCO3 21.1 mmol/L (21.0-28.0); ABG OXYGEN SATURATION 85.6 % (95.0-99.0); ABG PCO2 35 mmHg (35-48)
[2019-02-23] MEDS ORDERED: SODIUM CHLORIDE 0.9% 1000ML 1,000 ML IV ONE (02:39)
[2019-02-23 05:24] LABS: BASOPHILS % (AUTO) 0.7 % (0.0-5.0); HEMATOCRIT 32.6 % (42-54); LYMPHOCYTES % (AUTO) 11.5 % (21.0-51.0); MEAN CORPUSCULAR HEMOGLOBIN 28.9 pg (27.0-33.0); MEAN CORPUSCULAR HGB CONC 32.7 g/dL (32.0-36.0); MEAN CORPUSCULAR VOLUME 88.2 fL (79-99); MONOCYTES % (AUTO) 6.2 % (3.0-13.0); NEUTROPHILS % (AUTO) 81.6 % (40.0-77.0); PLATELET COUNT (AUTO) 219 K/uL (130-400)
[2019-02-23 05:42] LABS: CREATININE 4.9 mg/dL (0.5-1.5); POTASSIUM 4.5 mmol/L (3.5-5.1)
[2019-02-23 06:05] LABS: ALBUMIN 1.8 g/dL (3.5-5.0); BILIRUBIN,TOTAL 0.3 mg/dL (0.2-1.0); MAGNESIUM 2.2 mg/dL (1.80-2.40); PHOSPHORUS 5.4 mg/dL (2.5-4.9); TOTAL PROTEIN, SERUM 5.3 g/dL (6.0-8.3)
[2019-02-23] MEDS ORDERED: MAGNESIUM 2GM PREMIX 50ML 50 ML IV ONE (06:43)
[2019-02-23] MEDS ORDERED: INSULIN R PO SS2 SQ SCH (07:30)
--- NOTE | 2019-02-23 08:42 | NUR ---
APS Sw notified Jennie Mcgee [phone], admin. clerical assistant who is covering for [facility] Alvarenga [phone] pt's casewker of pt's re admit. Waiting for response
--- NOTE | 2019-02-23 09:50 | NUR ---
GERMAN santiago notified of . SW met with family and provided emotional support. Daughters denied need for assist at this time
== END 2019-02-23 11:39 | disposition expired | DRG 682 ==
LOC: EDH 12:31 → EDHIP 12:32
PROVIDERS: ADMIT Internal Medicine; ATTEND Internal Medicine
PROC: 5A1935Z Respiratory Ventilation, Less than 24 Consecutive Hours (ICD-10-PCS; 2019-02-22)
PROC: 5A12012 Performance of Cardiac Output, Single, Manual (ICD-10-PCS; principal; 2019-02-23)
DX: N17.0 Acute kidney failure with tubular necrosis (principal); E11.00 Type 2 diabetes mellitus with hyperosmolarity without nonketotic hyperglycemic-hyperosmolar coma (NKHHC); G93.41 Metabolic encephalopathy; E72.51 Non-ketotic hyperglycinemia; M62.82 Rhabdomyolysis; E11.51 Type 2 diabetes mellitus with diabetic peripheral angiopathy without gangrene; E86.0 Dehydration; E11.65 Type 2 diabetes mellitus with hyperglycemia; E78.5 Hyperlipidemia, unspecified; I10 Essential (primary) hypertension; I46.9 Cardiac arrest, cause unspecified; Z86.73 Personal history of transient ischemic attack (TIA), and cerebral infarction without residual deficits; Z89.512 Acquired absence of left leg below knee
CPT/HCPCS: 31500; 36415; 36600; 70450; 71045; 76770; 80053; 81001; 82140; 82435; 82550; 82570; 82803; 82947; 82948; 83036; 83605; 83690; 83735; 84100; 84132; 84295; 84300; 84484; 85018; 85025; 92950; 93005; 94660; 99291; G0378; J0171; J0282; J0461; J1815; J2001; J3475; J3490; J7030